=== PATIENT | female | born 1950 | race Two or more races ===

== ENCOUNTER 2024-01-16 19:03 | Emergency (ER) | payer OTHER ==
[~2024-01-16] VITALS: Ht 160 cm; Wt 62.6 kg
[2024-01-16] MEDS ORDERED: ONDANSETRON HCL 2 MG/ML VIAL IV ONE (19:45)
[2024-01-16] MEDS ORDERED: 0.9 % SODIUM CHLORIDE 1,000 ML IV ONE (19:45)
[2024-01-16] MEDS ORDERED: FAMOtidine 10 MG/ML (4ML VIAL) IV PUSH ONE (19:45)
[2024-01-16 19:54] LABS: HEMOGLOBIN 15.4 g/dL (12.0-15.00); MEAN CELL VOLUME 94.3 fL (80.00-100.00); MEAN CORPUSCULAR HGB CONC 34.9 g/dl (32.0-36.0); PLATELET COUNT 221 K/uL (150-450); RED BLOOD COUNT 4.67 M/uL (4.00-6.00)
[2024-01-16 20:20] LABS: BILIRUBIN TOTAL 0.52 mg/dL (0.3-1.2); CALCIUM 9.6 mg/dL (8.5-10.1); CREATININE SERUM 0.91 mg/dL (0.55-1.02); GFR 60.77; GLOBULINA 3.9 G/DL (2.4-3.5); POTASSIUM 4.2 mEq/L (3.5-5.1); TOTAL PROTEIN 7.9 gm/dL (6.4-8.2)
[2024-01-16] MEDS ORDERED: ZOFRAN8 MG PO (20:38)
[2024-01-16] MEDS ORDERED: PEPCID AC20 MG PO (20:38)
== END 2024-01-16 20:53 | disposition home or self-care (01) ==
LOC: ER 19:04
PROVIDERS: General Practice
DX: K52.9 Noninfective gastroenteritis and colitis, unspecified (principal); R10.9 Unspecified abdominal pain
CPT/HCPCS: 36415; 96365; 99282; J2405; J3490; J7030